=== PATIENT | female | born 1995 ===

== ENCOUNTER 2021-03-29 10:00 | Outpatient (REF) | payer MEDICARE, MEDICAID, SELFPAY ==
--- NOTE | ~2021-03-29 | US_ITS ---
EXAMINATION: US PELVIS CLINICAL INFORMATION: Excessive and frequent with menstruation. LMP 2 weeks ago (2 days length). COMPARISON: None TECHNIQUE: Ultrasound of the pelvis is performed using transabdominal transducer. Patient declined transvaginal imaging, unable to tolerate. FINDINGS: Uterus: The uterus is mildly anteverted and measures 6.2 x 4.5 x 4.9 cm. Volume 71 mL. The double wall endometrial thickness is normal at 0.4 cm. No fluid in the uterine cavity. There is convexity posterior uterine body region with vague decreased echogenicity suggesting intramural and subserous fibroid measuring 3.4 x 2.7 x 3.0 cm. The remainder of the myometrium is unremarkable. No other fibroids suspected on transabdominal imaging. Adnexa: Both ovaries are visualized and appear normal in size. There is no adnexal mass or pelvic ascites. Right ovary measures 4.5 x 1.8 x 2.7 cm. Volume 11.6 mL. Left ovary measures 4.8 x 1.7 x 2.6 cm. Volume 10.9 mL. US/US pelvic complete IMPRESSION: 1. Uterus: Suspect posterior fundal body intramural subserous fibroid 3.4 cm. Normal endometrial double wall thickness is 0.4 cm. 2. Ovaries: No adnexal mass or pelvic ascites. Ovaries normal in size. 3. Exam performed with transabdominal imaging.
== END 2021-03-29 10:01 | disposition home or self-care (01) ==
LOC: HO.HMGCX 10:00
PROVIDERS: Visit Provider Internal Medicine
DX: N91.2 Amenorrhea, unspecified (principal); N92.0 Excessive and frequent menstruation with regular cycle
CPT/HCPCS: 76856

== ENCOUNTER 2021-03-31 16:21 | Outpatient (REF) | payer MEDICARE, MEDICAID, SELFPAY ==
--- NOTE | ~2021-03-31 | MR_ITS ---
EXAMINATION: MR BRAIN WITHOUT AND WITH CONTRAST CLINICAL INFORMATION: Hyperprolactinemia. COMPARISON: None. TECHNIQUE: Multiplanar, multisequential imaging was obtained without and with intravenous administration of contrast. Intravenous contrast: Gadavist 5 mL. FINDINGS: No abnormal focus of decreased differential enhancement is seen within the pituitary gland. The infundibulum is midline. The cavernous sinuses opacify symmetrically. The internal carotid artery flow voids are maintained. No suprasellar soft tissue abnormality is seen. The sella turcica is normal. No diffusion abnormalities are identified to suggest an acute or subacute infarct. The ventricles are normal in size. No mass effect or midline shift is seen. No brain parenchymal signal abnormalities are seen. No extra-axial fluid collections are noted. There is focal volume loss and fissural prominence in the superior posteromedial portion of the right cerebellar hemisphere of indeterminate etiology. The brainstem is normal. There is no abnormal parenchymal or leptomeningeal enhancement. The craniovertebral junction, marrow signal, and midline structures are normal. The paranasal sinuses are well aerated. There is a [id number] amount of fluid in the mastoid air cells, more so on the left side. MR/MR head/brain wo/w con IMPRESSION: No pituitary abnormality identified. No acute process. Chronic volume loss in the superior posteromedial portion of the right cerebellar hemisphere with prominence of the fissures. 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 No visible protrusion or herniation of cerebellar contents at this site. Nonspecific [id number] amount of fluid in the mastoid air cells, more so on the left side.
== END 2021-03-31 16:22 | disposition home or self-care (01) ==
LOC: HO.MRI 16:21
PROVIDERS: PCP Internal Medicine; Visit Provider Internal Medicine
DX: E22.1 Hyperprolactinemia (principal)
CPT/HCPCS: 70553; A9585

== ENCOUNTER 2022-08-26 10:35 | Outpatient (REF) | payer MEDICARE, MEDICAID, SELFPAY | END 2022-08-26 10:36 | disposition home or self-care (01) | LOC: HO.MRI 10:35 | PROVIDERS: PCP Internal Medicine; Visit Provider Internal Medicine | DX: Z13.89 Encounter for screening for other disorder (principal) ==

== ENCOUNTER 2022-09-07 09:37 | Outpatient (REF) | payer MEDICARE, MEDICAID, SELFPAY ==
--- NOTE | ~2022-09-07 | MR_ITS ---
MR BRAIN WITHOUT AND WITH CONTRAST CLINICAL INFORMATION: HYPERPROLACTINEMIA COMPARISON: None available. TECHNIQUE: Multiplanar multisequence MR imaging of the brain was obtained without and following the administration of 5 mL of Gadavist without complication. FINDINGS: Limited assessment for small pituitary lesions due to heterogeneous background enhancement of the pituitary gland. There is a small focus of hypoenhancement between the anterior and posterior pituitary lobes that may reflect a pars intermedia cyst versus a pituitary microadenoma, measuring 2 mm in size. There is no sellar/suprasellar mass effect. The infundibulum remains midline and there is no mass effect on the optic nerve apparatus. The cavernous sinuses are symmetric and normal. There is posterior right greater than left cerebellar volume loss. There is no hydrocephalus, extra-axial surface collection, or herniation. The major flow voids at the skull base are preserved. There is no acute infarct on diffusion-weighted imaging. There is no intracranial hemorrhage on the gradient recalled echo acquisition. The midline structures are normal. The cerebellar tonsils are normally positioned. The craniocervical junction is normal. There is heterogeneously decreased bone marrow signal within the partially imaged cervical spine and throughout portions of the skull base including the clivus. Recommend correlating with CBC and possibly a a whole-body bone scan, particularly if there is concern for underlying malignancy. MR/MR head/brain wo/w con IMPRESSION: - Limited assessment for small pituitary lesions due to heterogeneous background enhancement of the pituitary gland. There is a small focus of hypoenhancement between the anterior and posterior pituitary lobes that may reflect a pars intermedia cyst versus a pituitary microadenoma, measuring 2 mm in size. There is no sellar/suprasellar mass effect. - There is posterior right greater than left cerebellar volume loss. - There is heterogeneously decreased bone marrow signal within the partially imaged cervical spine and throughout portions of the skull base including the clivus. Recommend correlating with CBC and possibly a a whole-body bone scan, particularly if there is concern for underlying malignancy.
== END 2022-09-07 09:38 | disposition home or self-care (01) ==
LOC: HO.MRI 09:37
PROVIDERS: PCP Internal Medicine; Visit Provider Internal Medicine
DX: E22.1 Hyperprolactinemia (principal)
CPT/HCPCS: 70553; A9585

== ENCOUNTER 2022-09-29 11:05 | Emergency (ER) | payer MEDICARE, MEDICAID, SELFPAY ==
--- NOTE | 2022-09-29 11:08 | ED_ITS ---
HPI - General Adult General Chief complaint: Dizziness <ADRYAN Angel - Last Filed: 09/29/22 11:16> Stated complaint: dizziness,vomiting,nausea <ADRYAN Angel - Last Filed: 09/29/22 11:16> Time Seen by Provider: 09/29/22 12:01 <ADRYAN Angel - Last Filed: 09/29/22 11:16> Source: patient and family <Serafin Lazcano MD - Last Filed: 09/29/22 12:33> Mode of arrival: ambulatory <Serafin Lazcano MD - Last Filed: 09/29/22 12:33> Limitations: other (Developmental delay) <Serafin Lazcano MD - Last Filed: 09/29/22 12:33> History of Present Illness HPI narrative: 27-year-old female with developmental delay presents with dizziness. Symptoms started 3 days ago. They are intermittent. They are moderate to severe. They are worse with head movement. They are associated with nausea vomiting. Sometimes they are associated with a generalized headache. There is no photo or phonophobia. There is no neck pain or stiffness. She denies any ear pain or ringing in the ear decreased hearing. She denies any focal neurologic deficits. She has had 2-3 further episodes approximately 1 month ago. Symptoms are becoming more persistent and more frequent. She has had a recent MRI for lack of periods. She is followed by ENT and Neurology. She also has been referred to Endocrinology. <Serafin Lazcano MD - Last Filed: 09/29/22 12:33> Related Data Home medications: Home Medications Medication Instructions Recorded Confirmed diazepam 5 mg tablet 1 tab PO BID PRN Anxiety 08/12/20 02/16/21 haloperidol 10 mg tablet 1 tab PO BID 08/12/20 02/16/21 haloperidol decanoate 100 mg/mL 100 mg IM QWEEK 08/12/20 02/16/21 intramuscular solution lamotrigine 100 mg tablet 1 tab PO DAILY 08/12/20 02/16/21 Previous Rx's Medication Instructions Recorded meclizine 25 mg tablet 25 mg PO BID PRN dizziness #10 tabs 09/29/22 ondansetron 4 mg disintegrating 4 mg PO Q8H PRN nausea and 09/29/22 tablet vomiting #7 tabs <ADRYAN Angel - Last Filed: 09/29/22 11:16> Allergies/adverse reactions: Allergies Allergy/AdvReac Type Severity Reaction Status Date / Time No Known Allergies Allergy Verified 09/29/22 11:08 <ADRYAN Angel - Last Filed: 09/29/22 11:16> FORMERLY [facility] Past Medical History Medical History: Medical History Bipolar 1 disorder Cognitive impairment Depression Iron deficiency anemia Menorrhagia Obesity Scoliosis <ADRYAN Angel - Last Filed: 09/29/22 11:16> Family History Family History: Family History Mother Diabetes <ADRYAN Angel - Last Filed: 09/29/22 11:16> Social History Social History: Social History Alcohol intake: former Patient Tobacco Use Status: Never used Tobacco Advance Directives: No <ADRYAN Angel - Last Filed: 09/29/22 11:16> Physical Exam ED Vital Signs: Vital Signs - 24 hr 09/29/22 11:09 Temperature 98 F Pulse Rate 98 Respiratory Rate 19 Blood Pressure 144/100 H Pulse Oximetry 99 Oxygen Delivery Method Room Air BMI result Body Mass Index 37.2 <ADRYAN Angel - Last Filed: 09/29/22 11:16> Vital Signs - 24 hr 09/29/22 11:09 Temperature 98 F Pulse Rate 98 Respiratory Rate 19 Blood Pressure 144/100 H Pulse Oximetry 99 Oxygen Delivery Method Room Air BMI result Body Mass Index 37.2 <Serafin Lazcano MD - Last Filed: 09/29/22 12:33> GEN: Well developed, no acute distress, alert, oriented HEENT: Normocephalic, atraumatic, normal external ears, nose appears normal, no oropharyngeal edema or exudates Eyes: Normal to appearance, no nystagmus Neck: Supple, no lymphadenopathy Respiratory: Talks in complete sentences, no respiratory distress, clear to auscultation bilaterally Cardiovascular: Regular rate and rhythm, no murmurs rubs or gallops Abdomen: Soft, nontender, nondistended, no guarding, no rebound Back: No CVA tenderness Extremities: No clubbing cyanosis or edema Neurologic: No focal neurologic deficits, cranial nerves 2-12 intact, strength is 5/5 bilaterally Skin: No rash <Serafin Lazcano MD - Last Filed: 09/29/22 12:33> Course Course Course Narrative: RME--27yo F w/PMHx bipolar, cognitive impairment, anemia, c/o intermittent room spinning dizziness x 2 mos, worsening over the past 3 weeks. Reports assoc headache, nausea & vomiting. Patient had MRI on 09/07/22 showing possible pituitary microadenoma as well is decreased bone marrow signal which recommend correlating with CBC/possibly whole-body scan if there is concern for underlying malignancy . Glassie reports after MRI results were referred to endocrinology, have not seen neurologist Hypertensive in triage 144/100. Did not take anything for headache today EKG, labs, UA, orthostatics ordered <ADRYAN Angel - Last Filed: 09/29/22 11: 16> Reevaluation(s) Reevaluation #1: The workup is complete. There are no significant acute abnormalities n oted on laboratory analysis. EKG shows no evidence of cardiac dysrhythmia. Her MRI which I reviewed from that was recently performed shows a possible adenoma of the pituitary gland. His approximately 2 mm in diameter. This is unlikely to be causing her disease symptoms. This was discussed with the patient and family member. At this point, it appears patient most likely has a peripheral vertigo. Will prescribe meclizine and Zofran as needed for symptoms. I will recommend further follow-up with ENT and Neurology. They are aware that this tubular therapy may be of benefit. <Serafin Lazcano MD - Last Filed: 09/29/22 12:33> Time: 12:24 <Serafin Lazcano MD - Last Filed: 09/29/22 12:33> Medical Decision Making Medical Decision Making MDM Narrative: 27-year-old female presents with dizziness. Symptoms have been intermittent for period of 1 month but worse over the past 3 days associated with nausea vomiting. There are no other focal neurologic deficits. There is no hearing change, tinnitus or ear pressure. Her ENT exam was normal. There is no evidence of nystagmus, otitis media otitis externa. Hearing acuity was is the same bilaterally. She has no focal neurologic deficits. Based on my examination, most likely patient is experiencing peripheral vertigo something l mariella BPPV, labyrinthitis or vestibular neuritis. Patient can be treated symptomatically. She can be referred back to ENT. It should be noted she did that patient did have an MRI performed recently for failure to have menstruation. There is a possible pituitary adenoma that is 2 mm in diameter. This does not appear to be a cause of any of her symptoms at this time. Patient has been referred to endocrinology for management. <Serafin Lazcano MD - Last Filed: 09/29/22 12:33> Differential Diagnosis Differential Diagnoses: The differential diagnosis associated with the presentation includes (Dizziness, lightheadedness, BPPV, labyrinthitis, vestibular neuritis, anemia, electrolyte abnormality) <Serafin Lazcano MD - Last Filed: 09/29/22 12:33> Lab Data MDM Lab Attestation statement: I reviewed the patient's lab results. <Serafin Lazcano MD - Last Filed: 09/29/22 12:33> Result Diagrams: 09/29/22 11:23 09/29/22 11:23 <ADRYAN Angel - Last Filed: 09/29/22 11:16> Labs: Lab Results 09/29/22 09/29/22 09/29/22 Range/Units 11:23 11:23 11:23 WBC 9.7 (4.8-10.8) X10*3/uL RBC 4.91 (4.20-5.50) X10*6/uL Hgb 10.4 L (12.0-16.0) g/dl Hct 34.9 L (37.0-47.0) % MCV 71.1 L (80.0-98.0) fL MCH 21.2 L (27.0-33.0) pg MCHC 29.8 L (31.0-35.0) g/dl RDW 19.4 H (11.0-16.0) % Plt Count 223 (160-400) X10*3/uL MPV 10.5 (9.4-12.3) fL Immature Gran % (Auto) 0.3 (0.0-0.4) % Neut % (Auto) 62.4 (45-73) % Lymph % (Auto) 28.7 (20-40) % Burnet % (Auto) 5.9 (2-11) % Eos % (Auto) 2.4 (0-4) % Baso % (Auto) 0.3 (0-2) % Lymph # (Auto) 2.8 (1.2-4.9) X10*3/uL Burnet # (Auto) 0.6 (0.1-1.2) X10*3/uL Eos # (Auto) 0.2 (0.0-0.4) X10*3/uL Baso # (Auto) 0.0 (0.0-0.2) X10*3/uL Abs Immat Gran (auto) 0.03 (0.00-0.03) X10*3/uL Absolute Neuts (auto) 6.0 (2.0-8.3) x10*3/uL Absolute Nucleated RBC 0.000 (0.0-0.012) X10*3/uL Nucleated RBC % (auto) 0.0 (0.0-0.2) /100WBC PT 12.6 (10.0-13.1) SEC INR 1.1 (0.9-1.1) Sodium 139 (135-145) mmol/L Potassium 4.0 (3.3-5.1) mmol/L Chloride 104 (96-108) mmol/L Carbon Dioxide 28 (22-29) mmol/L Anion Gap 11 L (12-20) BUN 11 (9-16) mg/dL Creatinine 0.82 (0.5-1.4) mg/dL Estim Creat Clear Calc 118.4 Estimated GFR > 60 Random Glucose 186 H (60-115) mg/dL Calcium 9.6 (8.4-10.2) mg/dL Magnesium 1.7 (1.6-2.6) mg/dL Total Bilirubin 0.3 (0.0-1.0) mg/dL Direct Bilirubin 0.1 (0.0-0.5) mg/dL AST 12 (5-31) U/L ALT 13 (0-31) U/L Alkaline Phosphatase 112 (39-117) U/L Troponin I High Sens (<3.5-17.0) ng/L Total Protein 7.6 (6.5-8.0) g/dL Albumin 4.5 (3.5-5.0) g/dL 09/29/22 Range/Units 11:23 WBC (4.8-10.8) X10*3/uL RBC (4.20-5.50) X10*6/uL Hgb (12.0-16.0) g/dl Hct (37.0-47.0) % MCV (80.0-98.0) fL MCH (27.0-33.0) pg MCHC (31.0-35.0) g/dl RDW (11.0-16.0) % Plt Count (160-400) X10*3/uL MPV (9.4-12.3) fL Immature Gran % (Auto) (0.0-0.4) % Neut % (Auto) (45-73) % Lymph % (Auto) (20-40) % Burnet % (Auto) (2-11) % Eos % (Auto) (0-4) % Baso % (Auto) (0-2) % Lymph # (Auto) (1.2-4.9) X10*3/uL Burnet # (Auto) (0.1-1.2) X10*3/uL Eos # (Auto) (0.0-0.4) X10*3/uL Baso # (Auto) (0.0-0.2) X10*3/uL Abs Immat Gran (auto) (0.00-0.03) X10*3/uL Absolute Neuts (auto) (2.0-8.3) x10*3/uL Absolute Nucleated RBC (0.0-0.012) X10*3/uL Nucleated RBC % (auto) (0.0-0.2) /100WBC PT (10.0-13.1) SEC INR (0.9-1.1) Sodium (135-145) mmol/L Potassium (3.3-5.1) mmol/L Chloride (96-108) mmol/L Carbon Dioxide (22-29) mmol/L Anion Gap (12-20) BUN (9-16) mg/dL Creatinine (0.5-1.4) mg/dL Estim Creat Clear Calc Estimated GFR Random Glucose (60-115) mg/dL Calcium (8.4-10.2) mg/dL Magnesium (1.6-2.6) mg/dL Total Bilirubin (0.0-1.0) mg/dL Direct Bilirubin (0.0-0.5) mg/dL AST (5-31) U/L ALT (0-31) U/L Alkaline Phosphatase (39-117) U/L Troponin I High Sens < 2.7 (<3.5-17.0) ng/L Total Protein (6.5-8.0) g/dL Albumin (3.5-5.0) g/dL <ADRYAN Angel - Last Filed: 09/29/22 11:16> Lab Results 09/29/22 09/29/22 09/29/22 Range/Units 11:23 11:23 11:23 WBC 9.7 (4.8-10.8) X10*3/uL RBC 4.91 (4.20-5.50) X10*6/uL Hgb 10.4 L (12.0-16.0) g/dl Hct 34.9 L (37.0-47.0) % MCV 71.1 L (80.0-98.0) fL MCH 21.2 L (27.0-33.0) pg MCHC 29.8 L (31.0-35.0) g/dl RDW 19.4 H (11.0-16.0) % Plt Count 223 (160-400) X10*3/uL MPV 10.5 (9.4-12.3) fL Immature Gran % (Auto) 0.3 (0.0-0.4) % Neut % (Auto) 62.4 (45-73) % Lymph % (Auto) 28.7 (20-40) % Burnet % (Auto) 5.9 (2-11) % Eos % (Auto) 2.4 (0-4) % Baso % (Auto) 0.3 (0-2) % Lymph # (Auto) 2.8 (1.2-4.9) X10*3/uL Burnet # (Auto) 0.6 (0.1-1.2) X10*3/uL Eos # (Auto) 0.2 (0.0-0.4) X10*3/uL Baso # (Auto) 0.0 (0.0-0.2) X10*3/uL Abs Immat Gran (auto) 0.03 (0.00-0.03) X10*3/uL Absolute Neuts (auto) 6.0 (2.0-8.3) x10*3/uL Absolute Nucleated RBC 0.000 (0.0-0.012) X10*3/uL Nucleated RBC % (auto) 0.0 (0.0-0.2) /100WBC PT 12.6 (10.0-13.1) SEC INR 1.1 (0.9-1.1) Sodium 139 (135-145) mmol/L Potassium 4.0 (3.3-5.1) mmol/L Chloride 104 (96-108) mmol/L Carbon Dioxide 28 (22-29) mmol/L Anion Gap 11 L (12-20) BUN 11 (9-16) mg/dL Creatinine 0.82 (0.5-1.4) mg/dL Estim Creat Clear Calc 118.4 Estimated GFR > 60 Random Glucose 186 H (60-115) mg/dL Calcium 9.6 (8.4-10.2) mg/dL Magnesium 1.7 (1.6-2.6) mg/dL Total Bilirubin 0.3 (0.0-1.0) mg/dL Direct Bilirubin 0.1 (0.0-0.5) mg/dL AST 12 (5-31) U/L ALT 13 (0-31) U/L Alkaline Phosphatase 112 (39-117) U/L Troponin I High Sens (<3.5-17.0) ng/L Total Protein 7.6 (6.5-8.0) g/dL Albumin 4.5 (3.5-5.0) g/dL 09/29/22 Range/Units 11:23 WBC (4.8-10.8) X10*3/uL RBC (4.20-5.50) X10*6/uL Hgb (12.0-16.0) g/dl Hct (37.0-47.0) % MCV (80.0-98.0) fL MCH (27.0-33.0) pg MCHC (31.0-35.0) g/dl RDW (11.0-16.0) % Plt Count (160-400) X10*3/uL MPV (9.4-12.3) fL Immature Gran % (Auto) (0.0-0.4) % Neut % (Auto) (45-73) % Lymph % (Auto) (20-40) % Burnet % (Auto) (2-11) % Eos % (Auto) (0-4) % Baso % (Auto) (0-2) % Lymph # (Auto) (1.2-4.9) X10*3/uL Burnet # (Auto) (0.1-1.2) X10*3/uL Eos # (Auto) (0.0-0.4) X10*3/uL Baso # (Auto) (0.0-0.2) X10*3/uL Abs Immat Gran (auto) (0.00-0.03) X10*3/uL Absolute Neuts (auto) (2.0-8.3) x10*3/uL Absolute Nucleated RBC (0.0-0.012) X10*3/uL Nucleated RBC % (auto) (0.0-0.2) /100WBC PT (10.0-13.1) SEC INR (0.9-1.1) Sodium (135-145) mmol/L Potassium (3.3-5.1) mmol/L Chloride (96-108) mmol/L Carbon Dioxide (22-29) mmol/L Anion Gap (12-20) BUN (9-16) mg/dL Creatinine (0.5-1.4) mg/dL Estim Creat Clear Calc Estimated GFR Random Glucose (60-115) mg/dL Calcium (8.4-10.2) mg/dL Magnesium (1.6-2.6) mg/dL Total Bilirubin (0.0-1.0) mg/dL Direct Bilirubin (0.0-0.5) mg/dL AST (5-31) U/L ALT (0-31) U/L Alkaline Phosphatase (39-117) U/L Troponin I High Sens < 2.7 (<3.5-17.0) ng/L Total Protein (6.5-8.0) g/dL Albumin (3.5-5.0) g/dL <Serafin Lazcano MD - Last Filed: 09/29/22 12:33> Independent Interpretation I performed an independent interpretation of an: EKG (Sinus tachycardia heart rate 101, no acute ST elevations or depressions, nonspecific T-wave changes) <Serafin Lazcano MD - Last Filed: 09/29/22 12:33> Radiology Impression Discussion of test interpretation with radiology: I have reviewed the radiologist's reading. <Serafin Lazcano MD - Last Filed: 09/29/22 12:33> Radiologist Impression: MR/MR head/brain wo/w con IMPRESSION: - Limited assessment for small pituitary lesions due to heterogeneous background enhancement of the pituitary gland. There is a small focus of hypoenhancement between the anterior and posterior pituitary lobes that may reflect a pars intermedia cyst versus a pituitary microadenoma, measuring 2 mm in size. There is no sellar/suprasellar mass effect. ? - There is posterior right greater than left cerebellar volume loss. ? - There is heterogeneously decreased bone marrow signal within the partially imaged cervical spine and throughout portions of the skull base including the clivus. Recommend correlating with CBC and possibly a a whole-body bone scan, particularly if there is concern for underlying malignancy. Dictated By: Jere Josue MD Signed By: <Electronically signed by Jere Josue MD in OV> 09/15/22 0737 <Serafin Lazcano MD - Last Filed: 09/29/22 12:33> External Record Review External record reviewed: Prior outpatient radiology (MRI) <Serafin Lazcano MD - Last Filed: 09/29/22 12:33> Prescription Management I considered prescription management with: Pain Medication <Serafin Lazcano MD - Last Filed: 09/29/22 12:33> Discharge Plan Discharge Clinical Impression: Vertigo <ADRYAN Agnel - Last Filed: 09/29/22 11:16> Patient Disposition: Home, Self-Care <ADRYAN Angel - Last Filed: 09/29/22 11:16> Instructions: Vertigo (ED), Dizziness (ED) <ADRYAN Angel - Last Filed: 09/29/22 11:16> Prescriptions: New meclizine 25 mg tablet 25 mg PO BID PRN (Reason: dizziness) Qty: 10 0RF ondansetron 4 mg tablet,disintegrating 4 mg PO Q8H PRN (Reason: nausea and vomiting) Qty: 7 0RF No Action haloperidol decanoate 100 mg/mL solution 100 mg IM QWEEK haloperidol 10 mg tablet 1 tab PO BID lamotrigine 100 mg tablet 1 tab PO DAILY diazepam 5 mg tablet 1 tab PO BID PRN (Reason: Anxiety) <ADRYAN Angel - Last Filed: 09/29/22 11:16> Referrals: Katherine Hills MD [Primary Care Provider] - 5 days <ADRYAN Angel - Last Filed: 09/29/22 11:16> Stand Alone Forms: Work/School Release <ADRYAN Angel - Last Filed: 09/29/22 11:16> Print Language: Turkish <ADRYAN Angel - Last Filed: 09/29/22 11:16>
[2022-09-29 11:09] VITALS: BP 144/100; PULSE 98; RESP 19; TEMP 36.6; O2SAT 99; BMI 37.2
--- NOTE | 2022-09-29 11:14 | ECG_ITS ---
Test Reason : dizziness Blood Pressure : / mmHG Vent. Rate : 101 BPM Atrial Rate : 101 BPM P-R Int : 164 ms QRS Dur : 080 ms QT Int : 346 ms P-R-T Axes : 042 075 028 degrees QTc Int : 448 ms Sinus tachycardia Otherwise normal ECG No previous ECGs available Referred By: Gracy Villegas Electronically Signed By:CHASE PEREZ
[2022-09-29 11:27] LABS: MANUAL DIFF FLAG NO
[2022-09-29 11:31] LABS: Basophils Percent Auto 0.3 % (0-2); Eosinophils Absolute Auto 0.2 X10*3/uL (0.0-0.4); Eosinophils Percent Auto 2.4 % (0-4); Hematocrit 34.9 % (37.0-47.0); Hemoglobin 10.4 g/dl (12.0-16.0); Imm Gran Abs Auto 0.03 X10*3/uL (0.00-0.03); Imm Gran Pct Auto 0.3 % (0.0-0.4); Lymphocytes Absolute Auto 2.8 X10*3/uL (1.2-4.9); Lymphocytes Percent Auto 28.7 % (20-40); Mean Corpuscular HGB Conc 29.8 g/dl (31.0-35.0); Mean Corpuscular Hemoglobin 21.2 pg (27.0-33.0); Mean Corpuscular Volume 71.1 fL (80.0-98.0); Mean Platelet Volume 10.5 fL (9.4-12.3); Monocytes Absolute Auto 0.6 X10*3/uL (0.1-1.2); Monocytes Percent Auto 5.9 % (2-11); Neutrophils Percent Auto 62.4 % (45-73); Platelet Count 223 X10*3/uL (160-400); Red Blood Count 4.91 X10*6/uL (4.20-5.50); Red Cell Distribution Width 19.4 % (11.0-16.0); White Blood Count 9.7 X10*3/uL (4.8-10.8)
[2022-09-29 11:37] LABS: INTERNATIONAL NORM RATIO 1.1 (0.9-1.1); Prothrombin Time 12.6 SEC (10.0-13.1)
--- OUTSIDE RECORDS SUMMARY | 2022-09-29 11:46 | XMS_ITS | Continuity of Care Document ---
Author Name Unknown Organization [facility] ter Address [address] [place] [id number]- Care Team Providers Care Vacuum Applicator Operator Name Role Phone Katherine Hills MD Primary Care Physician Encounter [facility] [place] Date(s): 01/23/22 - 01/23/[address] [address]- Encounter Diagnosis General medical exam(Final) - 01/23/22 Agitation(Final) - 01/23/22 Discharge Disposition: A-D/C Home Attending Physician: Star Krishnan MD Admitting Physician: Star Krishnan MD Referring Physician: Not on Staff, Referring MD Allergies, Adverse Reactions, Alerts No Known Allergies Problem List Condition Effective Dates Status Health Status Inform ant Iron deficiency anemia(Confirmed) Active Mental retardation(Confirmed) Active Psychiatric disorder(Confirmed) 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 Vital Signs Most recent to oldest [Reference Range]: 1 2 Oxygen Saturation [94-100 %] 99 % (01/23/22 7:30 PM) 99 % (01/23/22 1:48 PM) Pulse Rate [55-90 bpm] 90 bpm (01/23/22 7:30 PM) 101 bpm *H* (01/23/22 1:48 PM) Blood Pressure [90-138/55-84 mm Hg] 142/ 89mm Hg *H* (01/23/22 7:30 PM) 129/89mm Hg (01/23/22 1:48 PM) Respiratory Rate [16-30 br/min] 18 br/mi n (01/23/22 7:30 PM) 22 br/min (01/23/22 1:48 PM) Temperature [96.8-100.4 DegF] 98.9 DegF (01/23/22 7:30 PM) 98.9 DegF (01/23/22 1:48 PM) Mode of Delivery (Oxygen) Room air (01/23/22 7:30 PM) Room air (01/23/22 1:48 PM) Blood pressure sites Arm, right (01/23/22 7:30 PM) Arm, right (01/23/22 1:48 PM) Temperature Route Oral (01/23/22 7:30 PM) Oral (01/23/22 1:48 PM) Social History Social History Type Response Smoking Status Never (less than 100 in lifetime) entered on: 02/12/19 Sex
--- OUTSIDE RECORDS SUMMARY | 2022-09-29 11:46 | XMS_ITS | Continuity of Care Document ---
Author Name Unknown Organization [facility] Address [address] [place] [address]- Care Team Providers Care Space Buyer Name Role Phone Reinier GRANGER, Katherine Pelayo Primary Care Physician Encounter [facility] Date(s): 04/16/21 - 05/16/21 [facility] [address] [id number]- Allergies, Adverse Reactions, Alerts Substance Reaction Severity Status NKA Active Problem List Condition Effective Dates Status Health Status Inform ant Iron deficiency anemia(Confirmed) Active Mental retardation(Confirmed) Active Psychiatric disorder(Confirmed) 

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
[2022-09-29 11:55] LABS: Alanine Aminotransferase 13 U/L (0-31); Albumin Level 4.5 g/dL (3.5-5.0); Alkaline Phosphatase 112 U/L (39-117); Anion Gap 11 (12-20); Aspartate Amino Transferase 12 U/L (5-31); Bilirubin Direct 0.1 mg/dL (0.0-0.5); Bilirubin Total 0.3 mg/dL (0.0-1.0); Blood Urea Nitrogen 11 mg/dL (9-16); Calcium 9.6 mg/dL (8.4-10.2); Carbon Dioxide 28 mmol/L (22-29); Chloride 104 mmol/L (96-108); Creatinine Clr Calc Pharmacy 118.4; Estimated Glomerular Filt Rate > 60; Glucose Random 186 mg/dL (60-115); Magnesium 1.7 mg/dL (1.6-2.6); Sodium 139 mmol/L (135-145); Total Protein 7.6 g/dL (6.5-8.0)
[2022-09-29 12:00] LABS: Troponin-I High Sensitivity < 2.7 ng/L (<3.5-17.0)
== END 2022-09-29 12:43 | disposition home or self-care (01) ==
PROVIDERS: Physician Assistant; Emergency Provider Emergency Medicine; PCP Internal Medicine
DX: R42 Dizziness and giddiness (principal); R00.0 Tachycardia, unspecified; Z79.899 Other long term (current) drug therapy; D50.9 Iron deficiency anemia, unspecified
CPT/HCPCS: 36415; 80048; 80076; 83735; 84484; 85025; 85610; 93005; 99283

== ENCOUNTER 2023-02-15 15:21 | Outpatient (REF) | payer MEDICARE, MEDICAID, SELFPAY ==
[2023-02-15 19:06] LABS: Free T4 (Free Thyroxine) 0.81 ng/dL (0.71-1.85); HCG Quantitative < 2 mIU/mL; Thyroid Stimulating Hormone 2.28 uIU/mL (0.32-4.0)
== END 2023-02-15 15:22 | disposition home or self-care (01) ==
LOC: HO.LAB 15:21
PROVIDERS: PCP Internal Medicine; Visit Provider Internal Medicine Endocrinology, Diabetes & Metabolism
DX: E22.1 Hyperprolactinemia (principal)
CPT/HCPCS: 36415; 84439; 84443; 84702; 99202

== ENCOUNTER 2023-02-15 15:21 | Outpatient (AMB) | payer MEDICARE, MEDICAID, SELFPAY ==
[2023-02-15 15:26] VITALS: BP 137/82; PULSE 80; BMI 38.4
--- NOTE | 2023-02-15 15:26 | MHC.OFFVIS ---
Intake Vital Signs 02/15/23 15:26 Height 5 ft 4 in Weight 223 lb 8.78 oz BMI 38.4 BP 137/82 Blood Pressure Location Lt brachial Position Sitting Pulse 80 Pulse Source Pulse Oximeter Intake Visit Reasons: Hyperprolactinemia Intake Note: New patient present for Hyperprolactinemia. Filtration Operator Required: Yes Filtration Operator Language: New Zealander Information Interpreted: non-clinical & clinical Accompanied by: Other Relationship Allergies No Known Allergies Allergy (Verified 02/15/23 15:32) Medication List - Last Reconciled 02/15/23 by William Og MD diazepam 1 tab PO BID PRN haloperidol 1 tab PO BID haloperidol decanoate 100 mg IM QWEEK lamotrigine 1 tab PO DAILY meclizine 25 mg PO BID PRN metformin 500 mg PO DAILY ondansetron 4 mg PO Q8H PRN HPI HPI Comments History of Present Illness Details Is a 27-year-old female sent endocrinology for evaluation of hyperprolactinemia. She did have MRI which showed a questionable micro adenoma 2 mm few mos ago . Patient has been on Haldol for > 1 yr . Sees Stephen Baldwin ([facility]) for pych . She denies any breast discharge. Menses have been irregular since 07/2022 . Is not contemplating . She has normal liver and kidney function or thyroid problems [facility] Medical History (Updated 02/15/23 @ 15:42 by William Og MD) Bipolar 1 disorder Cognitive impairment Depression Hyperprolactinemia Iron deficiency anemia Menorrhagia Obesity Scoliosis Family History Mother Diabetes Social History Alcohol intake: former Patient Tobacco Use Status: Never used Tobacco Physical Exam Vital Signs: Last Vital Signs Pulse 80 02/15/23 15:26 BP 137/82 02/15/23 15:26 BMI result Body Mass Index 38.4 Const Other: Thyroid gland is normal size weighs about 15 g. Breast exam reveals . There are no acromegalic features. Lungs are clear to auscultation. Heart is S1-S2. Abdominal exam is benign. Breast examination reveals the absence of masses or discharge Assessment & Plan Assessment & Plan (1) Hyperprolactinemia: Code(s): E22.1 - Hyperprolactinemia Plan: This is a 27-year-old female with a history of hyperprolactinemia. Most likely etiology is neuroleptics medication. Other possibility is the micro prolactinoma which is less likely. Rule out hypothyroidism and . Patient has normal kidney and liver function. Plan is to check a TSH, free T4 and beta hCG. Will also check a 24 hour urine for free cortisol and creatinine. Will talk to patient's psychiatrist about potentially switching to Haldol to another anti psychotic a that does not cause hyper prolactin recheck prolactin 6 weeks later if this which can be made. If patient cannot come off Haldol, consideration could be given to initiation of estrogen containing control pill. Cannot use a dopamine agonist in this patient with a history of psychosis. Orders: Orders HCG Quantitative Today E22.1 - Hyperprolactinemia Free T4 (Free Thyroxine) Today E22.1 - Hyperprolactinemia Thyroid Stimulating Hormone Today E22.1 - Hyperprolactinemia Cortisol, Free 24Hr Urine Today E22.1 - Hyperprolactinemia Creatinine, 24 Hr Group Today E22.1 - Hyperprolactinemia Coding Level of Care Code New Pt Level 4 (44910) Diagnoses Hyperprolactinemia E22.1
== END 2023-02-15 16:25 | disposition home or self-care (01) ==
PROVIDERS: PCP Internal Medicine; Visit Provider Internal Medicine Endocrinology, Diabetes & Metabolism
DX: E22.1 Hyperprolactinemia (principal)
CPT/HCPCS: 99204

== ENCOUNTER 2023-02-20 14:59 | Outpatient (REF) | payer MEDICARE, MEDICAID, SELFPAY ==
[2023-02-20 15:27] LABS: Total Volume 24 Hour Urine 1350 mL
[2023-02-20 16:26] LABS: Creatinine, 24Hr Urine 0.8 G/Day (1.0-2.0); Creatinine, mg/dL 58.45
[2023-03-07 11:39] LABS: Cortisol Free, 24 Hr Urine 10.2 mcg/24 h (4.0-50.0); Creatinine, 24 Hr Urine 0.75 g/24 h (0.50-2.15); Total Volume, 24 Hr Urine 1350 mL
== END 2023-02-20 15:00 | disposition home or self-care (01) ==
LOC: HO.LNP 14:59
PROVIDERS: Visit Provider Internal Medicine Endocrinology, Diabetes & Metabolism
DX: E22.1 Hyperprolactinemia (principal)
CPT/HCPCS: 82530; 82570

== ENCOUNTER 2023-06-08 10:31 | Outpatient (AMB) | payer MEDICARE, MEDICAID, SELFPAY ==
[2023-06-08 10:33] VITALS: BP 110/76; PULSE 78; BMI 38.6
--- NOTE | 2023-06-08 10:33 | MHC.OFFVIS ---
Intake Vital Signs 06/08/23 10:33 Height 5 ft 4 in Weight 224 lb 13.944 oz BMI 38.6 BP 110/76 Blood Pressure Location Lt brachial Position Sitting Pulse 78 Pulse Source Pulse Oximeter Intake Visit Reasons: Hyperprolactinemia-LVM Intake Note: Patient present today for Hyperprolactinemia follow up visit. Senior Devops Engineer Required: No Accompanied by: Unknown Allergies No Known Allergies Allergy (Verified 02/15/23 15:32) HPI HPI Comments History of Present Illness Details Is a 27-year-old female sent endocrinology for evaluation of hyperprolactinemia. She did have MRI which showed a questionable micro adenoma 2 mm few mos ago . Patient has been on Haldol for > 1 yr . Sees Stephen Baldwin ([facility]) for pych . She denies any breast discharge. Menses have been irregular since 07/2022 . Is not contemplating . She has normal liver and kidney function or thyroid problems . Psychiatry was reluctant to change anti-psychotic medication from Haldol. [facility] Medical History (Updated 02/21/23 @ 11:26 by [employer] [place]) Hyperprolactinemia Menorrhagia Depression Bipolar 1 disorder Iron deficiency anemia Cognitive impairment Scoliosis Obesity Family History Mother Diabetes Social History Alcohol intake: former Patient Tobacco Use Status: Never used Tobacco Assessment & Plan Assessment & Plan (1) Hyperprolactinemia: Code(s): E22.1 - Hyperprolactinemia Plan: This is a 27-year-old female with a history of hyperprolactinemia. Most likely etiology is neuroleptics medication. Other possibility is the micro prolactinoma which is less likely. hypothyroidism and have been ruled out. Patient has normal kidney and liver function. Workup for [facility] was negative Plan is to talk to patient about going to oracle technical developer to consider being placed on an estrogen containing control to avoid the effects of hypoestrogenia. She is going make a follow-up with oracle technical developer to discuss this. Coding Level of Care Code Est Pt Level 3 (44091) Diagnoses Hyperprolactinemia E22.1
== END 2023-06-08 10:51 | disposition home or self-care (01) ==
PROVIDERS: PCP Internal Medicine; Visit Provider Internal Medicine Endocrinology, Diabetes & Metabolism
DX: E22.1 Hyperprolactinemia (principal)
CPT/HCPCS: 99213

== ENCOUNTER → 2023-06-08 10:31 | Outpatient (BNVA) | payer MEDICARE, MEDICAID, SELFPAY | PROVIDERS: PCP Internal Medicine; Visit Provider Internal Medicine Endocrinology, Diabetes & Metabolism | DX: E22.1 Hyperprolactinemia (principal) | CPT/HCPCS: 99212 ==

== ENCOUNTER 2023-12-07 10:03 | Outpatient (AMB) | payer MEDICARE, MEDICAID, SELFPAY ==
--- NOTE | 2023-12-07 10:05 | MHC.OFFVIS ---
Vital Signs 12/07/23 10:06 Height 5 ft 4 in Weight 218 lb 14.704 oz BMI 37.6 BP 98/52 L Blood Pressure Location Lt brachial Position Sitting Pulse 103 H Pulse Source Pulse Oximeter Intake Visit Reasons: f/u microprolactinoma on [id number]-[id number]-ulpbkopbi Intake Note: Patient present today for Micro prolactinoma on anti-psychotic follow up visit. Die Cast Engineer Required: Yes Die Cast Engineer Language: Assurance Officer Name: Marcio Information Interpreted: non-clinical & clinical Accompanied by: primary care sales representative Allergies No Known Allergies Allergy (Verified 12/07/23 10:14) Medication List - Last Reconciled 12/07/23 by William Og MD diazepam 1 tab PO BID PRN docusate sodium 100 mg PO BID haloperidol 1 tab PO BID haloperidol 2 mg PO BID haloperidol decanoate 100 mg IM QWEEK lamotrigine 1 tab PO DAILY lamotrigine 150 mg PO DAILY lisinopril 5 mg PO DAILY meclizine 25 mg PO BID PRN pioglitazone 30 mg PO DAILY HPI Comments Details: Is a 28-year-old female sent endocrinology for evaluation of hyperprolactinemia. She did have MRI which showed a questionable micro adenoma 2 mm few mos ago . Patient has been on Haldol for > 1 yr . Sees Stephen Baldwin ([facility]) for pych . She denies any breast discharge. Menses have been irregular since 07/2022 . Is not contemplating . She has normal liver and kidney function or thyroid problems . Psychiatry was reluctant to change anti-psychotic medication from Haldol. [facility] Medical History (Updated 02/21/23 @ 11:26 by [employer] [place]) Hyperprolactinemia Menorrhagia Depression Bipolar 1 disorder Iron deficiency anemia Cognitive impairment Scoliosis Obesity Family History Mother Diabetes Social History Alcohol intake: former Patient Tobacco Use Status: Never used Tobacco Physical Exam Vital Signs: Last Vital Signs Pulse 103 H 12/07/23 10:06 BP 98/52 L 12/07/23 10:06 BMI result Body Mass Index 37.6 Assessment & Plan Assessment & Plan (1) Hyperprolactinemia: Code(s): E22.1 - Hyperprolactinemia Category: Medical Plan: This is a 28-year-old female with a history of hyperprolactinemia. Most likely etiology is neuroleptics medication. Other possibility is the micro prolactinoma which is less likely. hypothyroidism and have been ruled out. Patient has normal kidney and liver function. Workup for [facility] was negative Plan is to talk to patient about going to synthetic gem press operator to consider being placed on an estrogen containing control to avoid the effects of hypoestrogenia. I will try to reach out to synthetic gem press operator to discuss this She is currently on Nexplanon which does not containestrogen. She is going make a follow-up with synthetic gem press operator to discuss this. If this can not be accomplished, we may need to talk to Psychiatry about switching to a different neuroleptic that does not raise prolactin Coding Level of Care Code Est Pt Level 3 (93451) Diagnoses Hyperprolactinemia E22.1
[2023-12-07 10:06] VITALS: BP 98/52; PULSE 103; BMI 37.6
== END 2023-12-07 10:31 | disposition home or self-care (01) ==
PROVIDERS: PCP Internal Medicine; Visit Provider Internal Medicine Endocrinology, Diabetes & Metabolism
DX: E22.1 Hyperprolactinemia (principal)
CPT/HCPCS: 99213

== ENCOUNTER → 2023-12-07 10:03 | Outpatient (BNVA) | payer MEDICARE, MEDICAID, SELFPAY | PROVIDERS: PCP Internal Medicine; Visit Provider Internal Medicine Endocrinology, Diabetes & Metabolism | DX: E22.1 Hyperprolactinemia (principal) | CPT/HCPCS: 99212 ==

== ENCOUNTER → 2024-02-20 10:27 | Outpatient (RCR) | payer MEDICARE, MEDICAID, SELFPAY ==
[2020-08-12 13:03] VITALS: BP 130/79; PULSE 76; RESP 12; TEMP 36.3; O2SAT 100; BMI 39.9
--- NOTE | 2020-08-12 13:17 | P.PNHO_ITS ---
Medical Summary - Medical Summary Date of Service: 08/12/20 Chief complaint: Follow-up Medical Summary: Diagnosis: Iron deficiency anemia Patient is cognitively impaired and mother is the main historian. She has been diagnosed with iron deficiency anemia secondary to menorrhagia. H and H has been trending down as she is noncompliant with oral iron therapy. Hemoglobin usually between 10 to 12 g/dL, but in the recent months, has gone down to 9.8 g/dL to 8.9 g/dL. Serum iron 16 mcg/dL in November with iron saturation of 5% and ferritin of 4. Normal folate level elevated. B12 of 913, normal thyroid functions, normal kidney and liver functions. Received iron dextran therapy in January 2016 with good results. Interval History Interval history: Patient is here in follow-up, she is accompanied by her home health care case manager. She is doing well, no new complaints. Her menstrual cycles tend to be rather heavy. She denies any other complaints such as exertional shortness of breath, dizziness or palpitations. Her appetite is good, she has had no weight loss. No change in bowel habits. She denies any abdominal discomfort or side effects with iron supplementation. Patient states that she has had recent heavy menstrual bleeding. Review of Systems - Constitutional Reports no additional constitutional complaints PMFSH Medical History: Medical History (Last Updated 08/12/20 @ 08:52 by Umm Lebron) Bipolar 1 disorder Cognitive impairment Depression Iron deficiency anemia Menorrhagia Obesity Scoliosis Family History: Family History (Last Updated 08/12/20 @ 08:51 by Umm Lebron) Mother Diabetes Social History: Social History (Last Updated 08/12/20 @ 13:06 by Umm Lebron) Alcohol History: Alcohol intake: former Alcohol History Details: Alcohol intake frequency: does not drink Tobacco History: Smoking Status: Never smoker Substance Use History: Use of substances other than those prescribed or required for medical reasons : No Smoking status: Never smoker Oncology Screenings - ECOG Performance Status ECOG Performance Status: 0 Home Medications and Allergies Home Medications Medication Instructions Recorded Confirmed Type diazepam 1 tab PO BID PRN 08/12/20 08/12/20 History haloperidol 1 tab PO BID 08/12/20 08/12/20 History haloperidol decanoate 100 mg IM QWEEK 08/12/20 08/12/20 History lamotrigine 1 tab PO DAILY 08/12/20 08/12/20 History Allergies Allergy/AdvReac Type Severity Reaction Status Date / Time No Known Allergies Allergy Unverified 02/27/20 17:42 Exam Vital signs: Vital Signs Temp 97.3 F 08/12/20 13:03 Pulse 76 08/12/20 13:03 Resp 12 08/12/20 13:03 BP 130/79 08/12/20 13:03 Pulse Ox 100 08/12/20 13:03 Intake & Output 08/11/20 08/12/20 08/12/20 18:59 06:59 18:59 Other: Weight 92.8 kg [place] Weight in Grams [address]992 Weight 92.8 kg Body Mass Index 39.9 - Constitutional Present: obese - Routine HEENT Exam Head: Present: normal inspection Eye: Present: EOMI, PERRL - Routine Neck Exam Present: normal inspection - Routine Respiratory Exam Present: CTAB - Routine Cardiovascular Exam Cardiovascular: Present: S1, S2 - Routine Abdominal Exam Present: soft Data - Labs CBC & Chem 7: 08/12/20 13:28 Progress Note: A/P (1) Iron (Fe) deficiency anemia Status: Chronic Assessment and plan: This is a 25-year-old female with iron deficiency anemia secondary to menorrhagia. Received iron dextran therapy in January 2016 and subsequently in 2017. She is on ferrous sulfate 325 mg p.o. once daily. She has some worsening of her anemia. Her iron will be increased to twice a day. Follow-up in 6 months. - Time Spent With Patient Total time spent is greater than 50% in coordination of care (as documented) at patient's floor/unit and/or counseling patient: 15 - 24 minutes
[2020-08-12 13:30] LABS: MANUAL DIFF FLAG NO
[2020-08-12 13:38] LABS: Basophils Percent Auto 0.3 % (0-2); Eosinophils Absolute Auto 0.2 X10*3/uL (0.0-0.4); Eosinophils Percent Auto 2.5 % (0-4); Hematocrit 32.2 % (37-47); Hemoglobin 10.3 g/dl (12.0-16.0); Imm Gran Abs Auto 0.02 X10*3/uL (0.00-0.03); Imm Gran Pct Auto 0.3 % (0.0-0.4); Lymphocytes Absolute Auto 2.3 X10*3/uL (1.2-4.9); Lymphocytes Percent Auto 30.5 % (20-40); Mean Corpuscular Hemoglobin 28.5 pg (27.0-33.0); Mean Corpuscular Volume 89.2 fL (80-98); Monocytes Absolute Auto 0.6 X10*3/uL (0.1-1.2); Monocytes Percent Auto 7.5 % (2-11); Neutrophils Absolute Auto 4.5 X10*3/uL (2.0-8.3); Neutrophils Percent Auto 58.9 % (45-73); Platelet Count 173 X10*3/uL (160-400); Red Blood Count 3.61 X10*6/uL (4.20-5.50); Red Cell Distribution Width 13.4 % (11.0-16.0); White Blood Count 7.6 X10*3/uL (4.8-10.8)
[2020-08-12 14:11] LABS: Iron 57 mcg/dL (30-160); Percent Iron Saturation 19 % (15-50); Total Iron Binding Capacity 298 mcg/dL (228-428); Unsaturated Iron Binding 241 ug/dL
--- NOTE | 2020-08-12 14:14 | MHC.HEMONCMA ---
Patient came in for a follow up today, states she is doing well. Clinical loy reviewed and updated. Pt had labs and will return in 6 months for a follow.
[2021-02-16 15:57] VITALS: BP 135/84; PULSE 78; RESP 14; TEMP 36.2; O2SAT 98; BMI 42.6
--- NOTE | 2021-02-16 16:18 | PM.HEMONCPN ---
Medical Summary - Medical Summary Date of Service: 02/16/21 Chief complaint: Follow-up Medical Summary: Diagnosis: Iron deficiency anemia Patient is cognitively impaired and mother is the main historian. She has been diagnosed with iron deficiency anemia secondary to menorrhagia. H and H has been trending down as she is noncompliant with oral iron therapy. Hemoglobin usually between 10 to 12 g/dL, but in the recent months, has gone down to 9.8 g/dL to 8.9 g/dL. Serum iron 16 mcg/dL in November with iron saturation of 5% and ferritin of 4. Normal folate level elevated. B12 of 913, normal thyroid functions, normal kidney and liver functions. Received iron dextran therapy in January 2016 with good results. Interval History Interval history: Patient is here in follow-up, she is accompanied by her medical case worker. She is doing well, no new complaints. Her menstrual cycles have suddenly since October. She denies any complaints today. Her appetite is good, she has had no weight loss. No change in bowel habits. She is not taking iron anymore Review of Systems - Constitutional Reports as per HPI, Reports no additional constitutional complaints - Cardiovascular Reports no additional cardiovascular complaints - Respiratory Reports no additional respiratory complaints - Gastrointestinal Reports no additional gastrointestinal complaints [facility], [facility] Medical History: Medical History (Last Reviewed 02/16/21 @ 15:58 by Umm Lebron) Bipolar 1 disorder Cognitive impairment Depression Iron deficiency anemia Menorrhagia Obesity Scoliosis Family History: Family History (Last Reviewed 02/16/21 @ 15:58 by Umm Lebron) Mother Diabetes Social History: Social History (Last Updated 02/16/21 @ 15:58 by Umm Lebron) Alcohol History: Alcohol intake: former Alcohol History Details: Alcohol intake frequency: does not drink Tobacco History: Patient Tobacco Use Status: Never used Tobacco Substance Use History: Use of substances other than those prescribed or required for medical reasons: No Home Medications and Allergies Home Medications Medication Instructions Recorded Confirmed Type diazepam 5 mg tablet 1 tab PO BID PRN 08/12/20 02/16/21 History haloperidol 10 mg tablet 1 tab PO BID 08/12/20 02/16/21 History haloperidol decanoate 100 mg/mL 100 mg IM QWEEK 08/12/20 02/16/21 History intramuscular solution lamotrigine 100 mg tablet 1 tab PO DAILY 08/12/20 02/16/21 History Allergies Allergy/AdvReac Type Severity Reaction Status Date / Time No Known Allergies Allergy Unverified 02/16/21 15:58 Exam Vital signs: Vital Signs Temp 97.1 F 02/16/21 15:57 Pulse 78 02/16/21 15:57 Resp 14 02/16/21 15:57 BP 135/84 02/16/21 15:57 Pulse Ox 98 02/16/21 15:57 Intake & Output 02/15/21 02/16/21 02/16/21 18:59 06:59 18:59 Other: Weight 99.1 kg [place] Weight in Grams [address]25 Weight 99.1 kg Body Mass Index 42.6 - Constitutional Present: obese - Routine HEENT Exam Head: Present: normal inspection - Routine Neck Exam Present: normal inspection - Routine Respiratory Exam Present: CTAB - Routine Cardiovascular Exam Cardiovascular: Present: S1, S2 - Routine Abdominal Exam Present: soft Data - Labs CBC & Chem 7: 02/16/21 16:12 Labs: 08/12/20 13:28 Complete Blood Count Auto Diff Routine IRON PROFILE Routine Laboratory Last Values WBC 7.6 X10*3/uL (4.8-10.8) 08/12/20 13:28 RBC 3.61 X10*6/uL (4.20-5.50) L 08/12/20 13:28 Hgb 10.3 g/dl (12.0-16.0) L 08/12/20 13:28 Hct 32.2 % (37-47) L 08/12/20 13:28 MCV 89.2 fL (80-98) 08/12/20 13:28 MCH 28.5 pg (27.0-33.0) 08/12/20 13:28 MCHC 32.0 g/dl (31.0-35.0) 08/12/20 13:28 RDW 13.4 % (11.0-16.0) 08/12/20 13:28 Plt Count 173 X10*3/uL (160-400) 08/12/20 13:28 MPV 11.0 fL (9.4-12.3) 08/12/20 13:28 Immature Gran % (Auto) 0.3 % (0.0-0.4) 08/12/20 13:28 Neut % (Auto) 58.9 % (45-73) 08/12/20 13:28 Lymph % (Auto) 30.5 % (20-40) 08/12/20 13:28 Casey % (Auto) 7.5 % (2-11) 08/12/20 13:28 Eos % (Auto) 2.5 % (0-4) 08/12/20 13:28 Baso % (Auto) 0.3 % (0-2) 08/12/20 13:28 Lymph # (Auto) 2.3 X10*3/uL (1.2-4.9) 08/12/20 13:28 Casey # (Auto) 0.6 X10*3/uL (0.1-1.2) 08/12/20 13:28 Eos # (Auto) 0.2 X10*3/uL (0.0-0.4) 08/12/20 13:28 Baso # (Auto) 0.0 X10*3/uL (0.0-0.2) 08/12/20 13:28 Abs Immat Gran (auto) 0.02 X10*3/uL (0.00-0.03) 08/12/20 13:28 Absolute Neuts (auto) 4.5 X10*3/uL (2.0-8.3) 08/12/20 13:28 Absolute Nucleated RBC 0.000 X10*3/uL (0.0-0.012) 08/12/20 13:28 Nucleated RBC % (auto) 0.0 /100WBC (0.0-0.2) 08/12/20 13:28 Iron 57 mcg/dL (30-160) 08/12/20 13:28 TIBC 298 mcg/dL (228-428) 08/12/20 13:28 % Saturation 19 % (15-50) 08/12/20 13:28 Unsat Iron Binding 241 ug/dL 08/12/20 13:28 Assessment and Plan Patient Active problem list reviewed?: Yes (1) Iron (Fe) deficiency anemia Status: Chronic Assessment and plan: This is a 25-year-old female with history of iron deficiency anemia secondary to menorrhagia. Received iron dextran therapy in January 2016 and subsequently in 2017. She was on ferrous sulfate 325 mg p.o. once daily. Since her menstrual cycles have stopped, she has been taken off oral iron, her anemia has resolved. She needs to follow-up with a subassemblies wirer about her amenorrhea. This does not appear to be related. Follow-up in 6 months. - Time Spent With Patient Time Spent with Patient (in minutes): 15
[2021-02-16 16:19] LABS: Hematocrit 37.5 % (37-47); Hemoglobin 12.1 g/dl (12.0-16.0); Mean Corpuscular HGB Conc 32.3 g/dl (31.0-35.0); Mean Corpuscular Hemoglobin 28.3 pg (27.0-33.0); Mean Corpuscular Volume 87.6 fL (80-98); Platelet Count 173 X10*3/uL (160-400); Red Blood Count 4.28 X10*6/uL (4.20-5.50); Red Cell Distribution Width 13.3 % (11.0-16.0); White Blood Count 8.4 X10*3/uL (4.8-10.8)
--- NOTE | 2021-02-16 16:24 | MHC.HEMONCMA ---
Patient came in for a follow up, states she is doing well. Her want ad clerk states that she has not had her period since October so they stopped giving her the iron. Clinical summary was reviewed and updated. Patient had labs and will return in 6 months for a follow up.
[2021-02-16 16:55] LABS: Ferritin 51 ng/mL (10-122)
--- NOTE | 2021-08-16 11:43 | HE.ONCSEC ---
CALLED PATIENT DUE TO HER N/S , PHONE KEPT ON RINGING AND DID NOT GO TO [employer] . I WILL CALL AGAIN TOMMOROW IN THE MORNING .
== END | disposition home or self-care (01) ==
LOC: HO.ONC 08-12 12:53
PROVIDERS: PCP Internal Medicine; Visit Provider Internal Medicine
DX: Z86.2 Personal history of diseases of the blood and blood-forming organs and certain disorders involving the immune mechanism (principal); N91.2 Amenorrhea, unspecified
CPT/HCPCS: 36415; 82728; 83540; 85025; 85027; 99213

== ENCOUNTER 2024-04-06 09:54 | Outpatient (REF) | payer MEDICARE, MEDICAID, SELFPAY ==
[2024-04-06 11:11] LABS: Anion Gap 10 (12-20); Blood Urea Nitrogen 6 mg/dL (9-16); Calcium 9.1 mg/dL (8.4-10.2); Carbon Dioxide 25 mmol/L (22-29); Chloride 107 mmol/L (96-108); Cholesterol 153 mg/dL (<200); Estimated Glomerular Filt Rate > 60; Glucose Random 134 mg/dL (60-115); HDL Cholesterol 44 mg/dL (>40); LDL Cholesterol Calculated 91 mg/dL (<100); Sodium 138 mmol/L (135-145); Triglycerides 91 mg/dL (<150)
[2024-04-06 11:14] LABS: Creatinine Urine 134.45 mg/dL
[2024-04-06 11:25] LABS: Microalbum/Creatinine Ratio Ur 398.6 ug/mg cr (<30)
[2024-04-06 11:26] LABS: Vitamin D 25-OH Total 30.1 ng/mL (>30)
[2024-04-06 12:33] LABS: Reflex LDLD? No
== END 2024-04-06 09:55 | disposition home or self-care (01) ==
LOC: HO.LAB 09:54
PROVIDERS: PCP Internal Medicine; Visit Provider Internal Medicine
DX: E11.65 Type 2 diabetes mellitus with hyperglycemia (principal)
CPT/HCPCS: 36415; 80048; 80061; 82043; 82306; 82570

== ENCOUNTER 2024-04-08 11:05 | Outpatient (AMB) | payer MEDICARE, MEDICAID, SELFPAY ==
[2024-04-08 11:13] VITALS: BP 128/84; PULSE 94; BMI 38.2
--- NOTE | 2024-04-08 11:13 | MHC.OFFVIS ---
Vital Signs 04/08/24 11:13 Height 5 ft 4 in Weight 222 lb 7.143 oz BMI 38.2 BP 128/84 Blood Pressure Location Lt brachial Position Sitting Pulse 94 Pulse Source Pulse Oximeter Intake Visit Reasons: f/u microprolactinoma on [id number]-rogzjaerm-lmyo Intake Note: Patient present today for micro prolactinoma on anti-psychotic follow up visit. Sample Card Maker Required: No Accompanied by: FACTORY SUPERINTENDENT Allergies No Known Allergies Allergy (Verified 04/08/24 11:20) Medication List - Last Reconciled 04/08/24 by William Og MD diazepam 1 tab PO BID PRN docusate sodium 100 mg PO BID fluticasone propionate 50 mcg/actuation sprays intranasal haloperidol 1 tab PO BID haloperidol 2 mg PO BID haloperidol decanoate 100 mg IM QWEEK lamotrigine 1 tab PO DAILY lamotrigine 150 mg PO DAILY lisinopril 5 mg PO DAILY meclizine 25 mg PO BID PRN pioglitazone 30 mg PO DAILY HPI Comments Details: Is a 29-year-old female sent endocrinology for evaluation of hyperprolactinemia. She did have MRI which showed a questionable micro adenoma 2 mm few mos ago . Patient has been on Haldol for > 1 yr . Sees Stephen Baldwin ([facility]NOTE [facility] for pych . She denies any breast discharge. Menses have been irregular since 07/2022 . Is not contemplating . She has normal liver and kidney function or thyroid problems . Psychiatry was reluctant to change anti-psychotic medication from Haldol. Plan was to have patient be with customer engineering specialist to discuss starting a contraceptive containing estrogen On Levonegesterol -estradiol - and is getting menses each mo PFS Medical History (Updated 02/21/23 @ 11:26 by [employer] [place]) Hyperprolactinemia Menorrhagia Depression Bipolar 1 disorder Iron deficiency anemia Cognitive impairment Scoliosis Obesity Family History Mother Diabetes Social History Alcohol intake: former Patient Tobacco Use Status: Never used Tobacco Assessment & Plan Assessment & Plan (1) Hyperprolactinemia: Code(s): E22.1 - Hyperprolactinemia Category: Medical Plan: This is a 29-year-old female with a history of hyperprolactinemia. Most likely etiology is neuroleptics medication. Other possibility is the micro prolactinoma which is less likely. hypothyroidism and have been ruled out. Patient has normal kidney and liver function. Workup for [facility] was negative Plan is to continue present management with oral contraceptive. As long as patient has normal menses, should continue current management with estrogen replacement. She returned back to endocrinology as needed. There is no reason to recheck prolactin levels or need for any further endocrine workup at this point Coding Level of Care Code Est Pt Level 3 (48764) Diagnoses Hyperprolactinemia E22.1
== END 2024-04-08 11:32 | disposition home or self-care (01) ==
PROVIDERS: PCP Internal Medicine; Visit Provider Internal Medicine Endocrinology, Diabetes & Metabolism
DX: E22.1 Hyperprolactinemia (principal)
CPT/HCPCS: 99213

== ENCOUNTER → 2024-04-08 11:05 | Outpatient (BNVA) | payer MEDICARE, MEDICAID, SELFPAY | PROVIDERS: PCP Internal Medicine; Visit Provider Internal Medicine Endocrinology, Diabetes & Metabolism | DX: E22.1 Hyperprolactinemia (principal) | CPT/HCPCS: 99212 ==

== ENCOUNTER 2024-08-27 10:54 | Outpatient (REF) | payer MEDICARE, MEDICAID, SELFPAY ==
[2024-08-30 06:22] LABS: TS Negative Control Passed; TS Panel A 0; TS Panel B 2; TS Positive Control Passed; TSpotTB Negative (Negative)
== END 2024-08-27 10:55 | disposition home or self-care (01) ==
LOC: HO.HHCL 10:54
PROVIDERS: Visit Provider Internal Medicine
DX: Z11.1 Encounter for screening for respiratory tuberculosis (principal)
CPT/HCPCS: 36415; 86481